=== PATIENT | female | born 2000 ===

== ENCOUNTER 2020-03-07 10:42 | Inpatient (IN) ==
[2020-03-07] MEDS ORDERED: NS 1,000 ML IV ONE (11:28)
[2020-03-07 12:28] LABS: BASO# 0.03 X1000 (0.0-0.2); BASO% 0.3 % (0.0-0.8); EOS# 0.01 X1000 (0.0-0.7); EOS% 0.1 % (0.0-10.0); HEMATOCRIT 14.5 % (37.0-47.0); HEMOGLOBIN 4.4 g/dL (12.0-16.0); LYMPH% 15.8 % (20.5-51.1); MCH 24.4 PG (27-31); MCHC 30.3 g/dL (33-37); MCV 80.6 FL (81-99); MONO% 6.5 % (1.7-9.3); MPV 11.6 FL (7.4-10.4); NEUT# 8.34 X1000 (1.4-6.5); NEUT% 77.3 % (42.2-75.2); PLT 302 X1000 (130-400); RDW 17.5 % (11.5-14.5); WBC 10.78 X1000 (4.8-10.8)
[2020-03-07 12:44] LABS: URINE SOURCE CLEAN CATCH
[2020-03-07 12:47] LABS: BILIRUBIN URINE NEGATIVE (NEGATIVE); BLOOD URINE MODERATE (NEGATIVE); COLOR YELLOW; GLUCOSE URINE NEGATIVE (NEGATIVE); KETONE URINE NEGATIVE (NEGATIVE); LEUKOCYTES URINE LARGE (NEGATIVE); NITRITE URINE NEGATIVE (NEGATIVE); PROTEIN URINE TRACE mg/dL (NEGATIVE); SP GRAVITY URINE 1.006; TURBIDITY URINE HAZY (CLEAR); UROBILINOGEN URINE NORMAL (NORMAL)
[2020-03-07 12:49] LABS: UR EPITHELIAL CELLS <10 /HPF (<10); URINE BACTERIA 1+ /HPF; URINE WBC TNTC /HPF (<10)
--- NOTE | 2020-03-07 12:57 | PROVIDER DOCUMENTATION ---
This chart was entered by Shazia Hess Scribe, acting as scribe for Nia Burton PA. HPI-Female /OB/Breast - General Source: reports: patient - History of Present Illness-Female /OB Does patient report she is ?: No (patient reports she is not on control) Location of complaint: reports: vaginal (patient states she has been on her menstrual cycle since 02/25 and has blood clots) Radiation: reports: back (lumbar pain) Quality of Pain: reports: cramping Severity in ED: reports: mild Onset/Duration: reports: gradual Timing: reports: still present Context/Activities at Onset: reports: light activity Vaginal Symptoms: reports: abnormal bleeding, passing clots/tissue Vaginal Bleeding Amount: Large/Heavy Urinary Symptoms: reports: no symptoms Contraception: reports: none Modifying Factors: improves with: nothing Associated Symptoms: reports: back/neck pain (lumbar), nausea, vomiting Similar Symptoms Previously?: Yes (patient sts she had similar sx in January but did not see physician) Recently seen or treated by another doctor?: No - LMP/ History LMP: 02/26/20 <Nia Burton - Last Filed: 03/07/20 12:56> <William Hernandez - Last Filed: 03/07/20 12:59> - General Chief Complaint: Female Stated Complaint: FEMALE Time Seen by Provider: 03/07/20 11:21 Allergies/Adverse Reactions: Patient Allergies Allergy/AdvReac Type Severity Reaction Status Date / Time No Known Allergies Allergy Verified 03/07/20 11:16 Home Medications: Home Medication List Medication Instructions Recorded Confirmed Last Taken Type NK [No Home Medications] 03/07/20 03/07/20 Unknown History - History of Present Illness-Female /OB Nature of Presenting Problem: 19yof presents to ED with c/o being on her menstrual cycle since 02/25 with heavy bleeding and clots. She also has weakness, lumbar pain, nausea, and vomited once this morning. She sts that she had similar sx in January but did not see a physician. She is not on any form of control. (Nia Burton) Review of Systems - Adult - REVIEW OF SYSTEMS - ADULT Constitutional: reports: see HPI. denies: chills, fever Eyes: reports: no symptoms reported Ears, Nose, Mouth & Throat: reports: no symptoms reported Cardiovascular: reports: see HPI. denies: chest pain, palpitations Respiratory: reports: see HPI. denies: cough, shortness of breath Gastrointestinal: reports: see HPI, nausea, vomiting. denies: abdominal pain, diarrhea Genitourinary: reports: no symptoms reported Musculoskeletal: reports: see HPI, back pain (lumbar). denies: neck pain Integumentary: reports: no symptoms reported Neurological: reports: no symptoms reported Psychiatric: reports: no symptoms reported Endocrine: reports: no symptoms reported Hematologic/Lymphatic: reports: no symptoms reported Allergic/Immunologic: reports: no symptoms reported All Other Systems: Reviewed and Negative <Nia Burton - Last Filed: 03/07/20 12:56> Past History - Adult - PAST MEDICAL HISTORY-ADULT Review of Records: reports: Nursing Assessment Review, Medications Reviewed, Social history reviewed & non-contributory. Major Childhood Illnesses: reports: denies history Cardiovascular: reports: denies history Respiratory: reports: denies history Gastrointestinal: reports: denies history Obstetrical/Gynecological: reports: denies history Genitourinary: reports: denies history Musculoskeletal: reports: denies history Neurological: reports: denies history Endocrine/Immune: reports: denies history Other Conditions: reports: denies history - SOCIAL HISTORY Smoking: denies Substance Use: denies <Nia Burton - Last Filed: 03/07/20 12:56> Physical Exam-General - PHYSICAL EXAM-ADULT Initial Vital Signs Reviewed: Yes - CONSTITUTIONAL General Appearance: appears well, alert, no apparent distress - EYES Eyes: PERRL/EOMI, pink conjunctivae - HEAD, EARS, NOSE, MOUTH & THROAT HENMT: normocephalic/atraumatic, moist mucous membranes - NECK Neck: non-tender, full range of motion, supple. negative: lymphadenopathy - RESPIRATORY Respiratory: chest non-tender, lungs clear, normal breath sounds. negative: crackles, rales, rhonchi, stridor, wheezing - CARDIOVASCULAR Cardiovascular: regular rate, rhythm, no edema - GASTROINTESTINAL (ABDOMEN) Abdominal Exam: normal bowel sounds, non tender, soft. negative: distended, guarding, rigid, rebound, tenderness, hernia, mass - MUSCULOSKELETAL Back Exam: normal inspection, no vertebral tenderness, CVA tenderness Extremity: normal gait, normal inspection - SKIN Integumentary: normal color, normal turgor, warm/dry - NEUROLOGIC Neurologic: grossly normal, no motor/sensory deficits - PSYCHIATRIC Psych/Mental Status: normal thought content, normal thought process <Nia BurtonHue - Last Filed: 03/07/20 12:56> Progress - PLAN OF CARE/RESULTS Result Diagrams: 03/07/20 11:45 - CONSULTS/PCP/HOSPITALIST Notification #1 *Consult/PCP/Hospitalist*: Dr. 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 Braden Consult Disposition: Will see in ED, Admit <William Hernandez - Last Filed: 03/07/20 12:59> - PLAN OF CARE/RESULTS Progress/Plan/Lab Results: Vital Signs - 8 hr 03/07/20 11:06 03/07/20 11:33 Temperature 99.3 F Pulse Rate 103 H Pulse Rate [Sitting] 112 H Pulse Rate [Standing] 118 H Pulse Rate [Supine] 100 H Respiratory Rate 18 Blood Pressure 117/55 Blood Pressure [Sitting] 116/62 Blood Pressure [Standing] 136/86 Blood Pressure [Supine] 120/62 O2 Sat by Pulse Oximetry 100 Bedside Urine ED: Urine Bedside Start: 03/07/20 11:22 Freq: ORDERED Status: Active Protocol: Activity Type Activity Date Activity User E-Sign Co-Sign Detail Recorded Client Recorded Date Recorded By Document 03/07/20 12:39 [id number] 03/07/20 12:40 [id number] 03/07/20 12:39 Point of Care [Bedside Point of Care] -Lot # [id number] - Results Negative -Control Line Visible? Yes Laboratory Results - last 24 hr 03/07/20 03/07/20 03/07/20 11:45 11:45 12:35 WBC 10.78 RBC 1.80 L Hgb 4.4 L* Hct 14.5 L MCV 80.6 L MCH 24.4 L MCHC 30.3 L RDW Std Deviation 17.5 H Plt Count 302 MPV 11.6 H Neut % (Auto) 77.3 H Lymph % (Auto) 15.8 L [place] % (Auto) 6.5 Eos % (Auto) 0.1 Baso % (Auto) 0.3 Neut # (Auto) 8.34 H Lymph # (Auto) 1.70 [place] # (Auto) 0.70 H Eos # (Auto) 0.01 Baso # (Auto) 0.03 Urine Source CLEAN CATCH Urine Color YELLOW Urine Turbidity HAZY Urine pH 6.0 Ur Specific [place] 1.006 Urine Protein TRACE A Ur Glucose (Stick) NEGATIVE Ur Ketones (Stick) NEGATIVE Urine Blood MODERATE A Urine Nitrite NEGATIVE Urine Bilirubin NEGATIVE Urobilinogen Dipstick NORMAL Urine Leukocytes LARGE A Urine WBC (Auto) TNTC A Urine RBC (Auto) 10-20 A U Epithel Cells (Auto) <10 Urine Bacteria (Auto) 1+ Blood Type Confirm A POSITIVE Orders Category Date Time Status ED: Orthostatic Vital Signs (ER use this DIRECTED Care 03/07/20 11:28 A ctive Saline Loc NOW Care 03/07/20 11:28 Active Transfuse .Give-Transfuse Care 03/07/20 12:34 Active Urine Preg [ED: Urine Bedside] ORDERED Care 03/07/20 11:22 Active CBC WITH ELECTRONIC DIFF [HEME] Stat Lab 03/07/20 11:45 Results COMPREHENSIVE METABOLIC PANEL [CHEM] Stat Lab 03/07/20 11:45 Received TYPE & SCREEN [BBK] Stat Lab 03/07/20 12:08 Results URINALYSIS W/POSS RFLX CULT [URINALYSIS] Stat Lab 03/07/20 12:35 Completed 0.9% Sodium Chloride Inj [Ns] 1,000 ml Med 03/07/20 11:28 Discontinued IV 999 mls/hr Oxygen Device Stat Oth 03/07/20 12:37 Active Departure - Departure Date of Disposition Decision: 03/07/20 Time of Disposition Decision: 12:38 Certified Medical Emergency: Emergent - Critical Care Note This patient required my direct & personal management of CC.: No <Nia Burton - Last Filed: 03/07/20 12:56> - Departure Certified Medical Emergency: Emergent <William Hernandez - Last Filed: 03/07/20 12:59> - Departure DIAGNOSIS: Symptomatic anemia Menorrhagia Qualifiers: Menorrhagia type: with irregular cycle Qualified Code(s): N92.1 - Excessive and frequent menstruation with irregular cycle Disposition: ADMITTED INPATIENT 09 Condition: Stable Referrals and Follow-Ups: None,PCP [Primary Care Provider] - Attestation - Physician/ CORTNEY Attestation Patient care was provided by Advanced Practice Provider:: Yes Advanced Practice Provider:: Nia Burton Advanced Practice Provider documentation review:: The Mid-level provider documentation, treatment plan and medical decision making was reviewed by the physician who agrees with all treatment and medical decision making by the MLP. The physician spent face to face time with patient:: Yes (Dr. Hernandez at bedside to discuss admission and labs and need for transfusion to address severe anemia.) Advanced Practice Provider documentation review:: Supervising physician onsite and consulted in the evaluation and care of this patient. The physician did have a face to face encounter with the patient. <Nia Burton - Last Filed: 03/07/20 12:56> This chart was documented by the indicated scribe, (Shazia Hess Scribe) and accurately reflects the services I performed and decisions made by me, Nia Burton PA, as attested by the provider's signature.
[2020-03-07 13:13] LABS: ANISOCYTOSIS 1+; BANDS 4 % (0-1); HYPOCHROM 1+; LYMPHS 20 % (21-51); MONO 2 % (1-9); POIKILOCYTOSIS 1+; SEGS 74 % (42-75)
[2020-03-07 13:14] LABS: LARGE PLATELETS OCCASIONAL
[2020-03-07 13:54] LABS: AGAP 14; ALB/GLOB RATIO 1.4; ALBUMIN 4.2 g/dL (3.5-5.0); ALKALINE PHOSPHATASE 45 U/L (32-104); BUN 8 mg/dL (8-22); CHLORIDE 98 mmol/L (98-107); COSMO 268; CREATININE 0.7 mg/dL (0.5-0.9); GLUCOSE 162 mg/dL (70-104); GOT 19 U/L (10-30); GPT 18 U/L (10-36); POTASSIUM 3.7 mmol/L (3.5-5.1); SODIUM 133 mmol/L (136-145); TCO2 21 mmol/L (25-35); TOTAL BILIRUBIN 0.15 mg/dL (0.20-1.00); TOTAL PROTEIN 7.3 g/dL (6.3-8.3)
--- NOTE | 2020-03-07 15:47 | Diag Imaging Result Doc PS360 ---
EXAM: US PELVIC NON-OB COMPLETE - 03/07/2020 HISTORY: menorrhagia TECHNIQUE: Ultrasound pelvis. Exam performed using transabdominal probe. COMPARISON: None. FINDINGS: The uterus measures 8 x 5.9 x 4.5 cm in size. There is no visible intrauterine . The dual layer endometrial thickness measures 2 cm. There is no discrete uterine lesion identified. The right ovary measures 3.8 x 2.6 x 2.1 cm in size. The left ovary measures 3.4 x 2.7 x 1.5 cm in size. The bilateral ovaries demonstrate blood flow signal on Doppler images. There are subcentimeter follicular cysts in the bilateral ovaries. There is no adnexal mass identified. There is minimal free fluid in the cul-de-sac. IMPRESSION: Borderline thickened endometrium at 2 cm. Minimal free fluid. Electronically signed by Anthony Barrett 03/07/2020 3:44 PM
[2020-03-07] MEDS ORDERED: NS 500 ML IV ONE (16:00)
--- NOTE | 2020-03-08 00:29 | HISTORY AND PHYSICAL ---
DATE OF ADMISSION: 03/07/2020 HISTORY OF PRESENT ILLNESS: The patient is a 19-year-old, Irish-speaking female, 0, 1st day of last menstrual period 02/26/2020, who presents to the emergency room after presenting to a physician's office in the community who recommended her to go to the hospital. The patient states that on the day of her menstrual period (02/26/2020), she experienced heavy bleeding and passage of large blood clots for 2 days. On day 3 of her menses, the bleeding grew emergency dispatcher and her menstrual period eventually resolved. She states that on February 28, she experienced nausea, which was a unique symptom and she experienced a recurrence of vaginal bleeding on March 06 that lasted for 1 day and specifically 3 hours. She presented to the ER at [facility] secondary to the onset of lightheadedness, of which she had never experienced before. GYNECOLOGY HISTORY: Significant for dysmenorrhea, the patient states that she is a virgin. PAST MEDICAL HISTORY: Significant for irregular heavy menstrual periods. She states that she does not have a menses every month, that she experiences a menstrual period every 1 to 2 months. PAST SURGICAL HISTORY: Denies. SOCIAL HISTORY: She admits to drinking alcohol socially once in her lifetime. She denies tobacco and illicit drug use. ALLERGIES: NKDA. MEDICATION: Aleve and Pamprin as needed during her menstrual period. FAMILY HISTORY: Significant for father age 52 who has noninsulin-dependent diabetes mellitus. PHYSICAL EXAMINATION: Vital Signs: Temperature 99.5 degrees, pulse rate 115, respiratory rate 18, blood pressure 129/68. Heart: Tachycardic at 101 beats per minute. Lungs: Clear to auscultation bilaterally. Abdomen: Soft, nontender. No palpable organomegaly. Pelvic: Deferred as the patient is less than 21 years of age and is a virgin. She states that she has not had any vaginal bleeding today. LABORATORY RESULTS: WBC 10.8, hemoglobin 4.4, hematocrit 14.0, platelet count 302,000. Sodium 133, chloride 98, potassium 3.7, CO2 is 21, BUN 8, creatinine 0.7. Glucose 162, AST 19, ALT 18. Urinalysis significant for moderate blood, trace protein, large leukocytes. ASSESSMENT: 1. Menometrorrhagia. 2. Severe anemia. 3. Hyperglycemia. PLAN: 1. Type and screen. 2. Blood transfusion. 3. Pelvic ultrasound to rule out the etiology of abnormal bleeding, i.e., thickened endometrium, uterine fibroids, ovarian cyst, etc. 4. Labs, PT, PTT, TSH, PRL, hemoglobin A1c, von Willebrand's; UCG (negative). The patient was informed of her diagnosis and the management plan. Will be informed of her ultrasounds results. She is aware that she is in need of a blood transfusion due to her severe anemic status. Thank you for consulting me and the [facility]IST team will continue to follow Benita.
[2020-03-08 00:32] LABS: HEMOGLOBIN A1C 5.4 % (4.8-6.0)
[2020-03-08 00:42] LABS: INR 1.06; PROTIME 13.9 Seconds (11.0-16.0); PTT 29.1 Seconds (22.3-41.8)
[2020-03-08 06:46] LABS: BASO# 0.03 X1000 (0.0-0.2); BASO% 0.4 % (0.0-0.8); EOS# 0.03 X1000 (0.0-0.7); EOS% 0.4 % (0.0-10.0); HEMATOCRIT 27.3 % (37.0-47.0); IMM GRAN# 0.05 X1000 (0.0-0.04); IMM GRAN% 0.6 % (0.0-0.5); LYMPH# 2.66 X1000 (1.2-3.4); LYMPH% 31.7 % (20.5-51.1); MCH 27.8 PG (27-31); MCV 84.3 FL (81-99); MONO# 0.73 X1000 (0.11-0.59); MONO% 8.7 % (1.7-9.3); MPV 11.8 FL (7.4-10.4); NEUT# 4.88 X1000 (1.4-6.5); NEUT% 58.2 % (42.2-75.2); PLT 267 X1000 (130-400); RBC 3.24 XMIL (4.2-5.4); RDW 15.8 % (11.5-14.5); WBC 8.38 X1000 (4.8-10.8)
--- NOTE | 2020-03-08 07:55 | OB/GYN PROGRESS NOTE ---
- Subjective 19 yo G0 with heavy, irregular menses to anemia Patient seen and examined. She denies any heavy bleeding, but did have some light bleeding overnight. Her period was very heavy with passage of clots on 02/25. She is currently receiving # 4 of 5 units of PRBCs. She is feeling better after receiving the blood. She denies dizziness, lightheadedness, nausea, vomiting. She is tolerating a regular diet. Discussed starting OCPs for heavy menses and she is amenable. She denies any personal or family history of clotting disorders. OB Physical Exam Vital Signs - 8 hr 03/08/20 00:49 03/08/20 01:23 03/08/20 04:00 Temperature 98.4 F 98.5 F 98.3 F Pulse Rate 86 79 74 Respiratory Rate 14 14 18 Blood Pressure 125/64 122/61 108/56 O2 Sat by Pulse Oximetry 100 100 100 03/08/20 06:39 03/08/20 07:18 Temperature 98.4 F 98.7 F Pulse Rate 73 70 Respiratory Rate 14 14 Blood Pressure 108/61 126/78 O2 Sat by Pulse Oximetry 100 100 - CONSTITUTIONAL General Appearance: appears well, alert, no apparent distress - HEAD, EARS, NOSE, MOUTH & THROAT HENMT: normocephalic/atraumatic - RESPIRATORY Respiratory: lungs clear, normal breath sounds, no respiratory distress - CARDIOVASCULAR Cardiovascular: regular rate, rhythm - GASTROINTESTINAL (ABDOMEN) Abdominal Exam: normal bowel sounds, non tender, soft - MUSCULOSKELETAL Extremity: normal range of motion, non-tender, normal inspection, no pedal edema - NEUROLOGIC Neurologic: grossly normal - PSYCHIATRIC Psych/Mental Status: normal mood/affect Active Medications Generic Name Dose Route Start Last Admin Trade Name Freq PRN Reason Stop Dose Admin Furosemide 20 mg 03/08/20 15:00 Lasix IV 03/08/20 15:01 NOW ONE Sodium Chloride 500 mls @ 30 mls/hr 03/07/20 16:00 Ns IV 03/08/20 08:39 ONCE ONE Bedside Urine ED: Urine Bedside Start: 03/07/20 11:22 Freq: ORDERED Status: Complete Protocol: Activity Type Activity Date Activity User E-Sign Co-Sign Detail Recorded Client Recorded Date Recorded By Document 03/07/20 12:39 [id number] 03/07/20 12:40 [id number] Edit Status 03/07/20 20:43 [id number] Active=>Complete [id number] 03/07/20 20:43 [id number] 03/07/20 12:39 Point of Care [Bedside Point of Care] -Lot # [id number] - Results Negative -Control Line Visible? Yes Laboratory Results - last 24 hr 03/07/20 03/07/20 03/07/20 00:12 00:12 00:12 WBC RBC Hgb Hct MCV MCH MCHC RDW Std Deviation Plt Count MPV Immature Gran % (Auto) Neut % (Auto) Lymph % (Auto) [place] % (Auto) Eos % (Auto) Baso % (Auto) Immature Gran # (Auto) Neut # (Auto) Lymph # (Auto) [place] # (Auto) Eos # (Auto) Baso # (Auto) Segmented Neutrophils Band Neutrophils Lymphocytes Monocytes Hypochromia Large Platelets Poikilocytosis Anisocytosis PT 13.9 INR 1.06 PTT (Actin FS) 29.1 Fibrinogen 310.0 Sodium Potassium Chloride Carbon Dioxide Anion Gap BUN Creatinine BUN/Creatinine Ratio Glucose Estimat Average Glucose Hemoglobin A1c Calculated Osmolality Calcium Total Bilirubin AST ALT Alkaline Phosphatase Total Protein Albumin Globulin Albumin/Globulin Ratio TSH 4.96 H Urine Source Urine Color Urine Turbidity Urine pH Ur Specific [place] Urine Protein Ur Glucose (Stick) Ur Ketones (Stick) Urine Blood Urine Nitrite Urine Bilirubin Urobilinogen Dipstick Urine Leukocytes Urine WBC (Auto) Urine RBC (Auto) U Epithel Cells (Auto) Urine Bacteria (Auto) Blood Type Blood Type Confirm Antibody Screen Crossmatch 03/07/20 03/07/20 03/07/20 00:12 11:45 11:45 WBC 10.78 RBC 1.80 L Hgb 4.4 L* Hct 14.5 L MCV 80.6 L MCH 24.4 L MCHC 30.3 L RDW Std Deviation 17.5 H Plt Count 302 MPV 11.6 H Immature Gran % (Auto) Neut % (Auto) 77.3 H Lymph % (Auto) 15.8 L [place] % (Auto) 6.5 Eos % (Auto) 0.1 Baso % (Auto) 0.3 Immature Gran # (Auto) Neut # (Auto) 8.34 H Lymph # (Auto) 1.70 [place] # (Auto) 0.70 H Eos # (Auto) 0.01 Baso # (Auto) 0.03 Segmented Neutrophils 74 Band Neutrophils 4 H Lymphocytes 20 L Monocytes 2 Hypochromia 1+ Large Platelets OCCASIONAL Poikilocytosis 1+ Anisocytosis 1+ PT INR PTT (Actin FS) Fibrinogen Sodium 133 L Potassium 3.7 Chloride 98 Carbon Dioxide 21 L Anion Gap 14 BUN 8 Creatinine 0.7 BUN/Creatinine Ratio 11 Glucose 162 H Estimat Average Glucose 108 Hemoglobin A1c 5.4 Calculated Osmolality 268 Calcium 9.0 Total Bilirubin 0.15 L AST 19 ALT 18 Alkaline Phosphatase 45 Total Protein 7.3 Albumin 4.2 Globulin 3.1 Albumin/Globulin Ratio 1.4 TSH Urine Source Urine Color Urine Turbidity Urine pH Ur Specific [place] Urine Protein Ur Glucose (Stick) Ur Ketones (Stick) Urine Blood Urine Nitrite Urine Bilirubin Urobilinogen Dipstick Urine Leukocytes Urine WBC (Auto) Urine RBC (Auto) U Epithel Cells (Auto) Urine Bacteria (Auto) Blood Type Blood Type Confirm Antibody Screen Crossmatch 03/07/20 03/07/20 03/07/20 11:45 12:08 12:35 WBC RBC Hgb Hct MCV MCH MCHC RDW Std Deviation Plt Count MPV Immature Gran % (Auto) Neut % (Auto) Lymph % (Auto) [place] % (Auto) Eos % (Auto) Baso % (Auto) Immature Gran # (Auto) Neut # (Auto) Lymph # (Auto) [place] # (Auto) Eos # (Auto) Baso # (Auto) Segmented Neutrophils Band Neutrophils Lymphocytes Monocytes Hypochromia Large Platelets Poikilocytosis Anisocytosis PT INR PTT (Actin FS) Fibrinogen Sodium Potassium Chloride Carbon Dioxide Anion Gap BUN Creatinine BUN/Creatinine Ratio Glucose Estimat Average Glucose Hemoglobin A1c Calculated Osmolality Calcium Total Bilirubin AST ALT Alkaline Phosphatase Total Protein Albumin Globulin Albumin/Globulin Ratio TSH Urine Source CLEAN CATCH Urine Color YELLOW Urine Turbidity HAZY Urine pH 6.0 Ur Specific [place] 1.006 Urine Protein TRACE A Ur Glucose (Stick) NEGATIVE Ur Ketones (Stick) NEGATIVE Urine Blood MODERATE A Urine Nitrite NEGATIVE Urine Bilirubin NEGATIVE Urobilinogen Dipstick NORMAL Urine Leukocytes LARGE A Urine WBC (Auto) TNTC A Urine RBC (Auto) 10-20 A U Epithel Cells (Auto) <10 Urine Bacteria (Auto) 1+ Blood Type A POSITIVE Blood Type Confirm A POSITIVE Antibody Screen NEGATIVE Crossmatch See Detail 03/08/20 06:23 WBC 8.38 RBC 3.24 L Hgb 9.0 L D Hct 27.3 L D MCV 84.3 MCH 27.8 MCHC 33.0 RDW Std Deviation 15.8 H Plt Count 267 MPV 11.8 H Immature Gran % (Auto) 0.6 H Neut % (Auto) 58.2 Lymph % (Auto) 31.7 [place] % (Auto) 8.7 Eos % (Auto) 0.4 Baso % (Auto) 0.4 Immature Gran # (Auto) 0.05 H Neut # (Auto) 4.88 Lymph # (Auto) 2.66 [place] # (Auto) 0.73 H Eos # (Auto) 0.03 Baso # (Auto) 0.03 Segmented Neutrophils Band Neutrophils Lymphocytes Monocytes Hypochromia Large Platelets Poikilocytosis Anisocytosis PT INR PTT (Actin FS) Fibrinogen Sodium Potassium Chloride Carbon Dioxide Anion Gap BUN Creatinine BUN/Creatinine Ratio Glucose Estimat Average Glucose Hemoglobin A1c Calculated Osmolality Calcium Total Bilirubin AST ALT Alkaline Phosphatase Total Protein Albumin Globulin Albumin/Globulin Ratio TSH Urine Source Urine Color Urine Turbidity Urine pH Ur Specific [place] Urine Protein Ur Glucose (Stick) Ur Ketones (Stick) Urine Blood Urine Nitrite Urine Bilirubin Urobilinogen Dipstick Urine Leukocytes Urine WBC (Auto) Urine RBC (Auto) U Epithel Cells (Auto) Urine Bacteria (Auto) Blood Type Blood Type Confirm Antibody Screen Crossmatch OB Assessment & Plan (1) Menorrhagia Status: Acute Plan: 19 yo G0 with heavy, irregular menses to anemia, elevated TSH 1. HD stable Hgb 4.4>9 after 3 units. Currently receiving unit #4 of 5. Vaginal bleeding currently light. 2. Will plan to start OCPs for heavy menses 3. elevated TSH> will check FT4 this AM 4. Von-Willebrand studies pending 5. Plan for patient to follow-up outpatient
[2020-03-08] MEDS: SPRINTEC PO SCH (08:43)
[2020-03-08] MEDS ORDERED: PATIENT'S OWN MED PO SCH (09:00)
--- NOTE | 2020-03-08 10:54 | PROGRESS NOTE ---
DATE: 03/08/2020 TIME SEEN: The patient was seen at 7:45 a.m. SUBJECTIVE: Benita is a 19-year-old, [place]uneian-speaking female, 1, who was admitted to [facility] on yesterday secondary to severe anemia caused by menometrorrhagia. The patient was started on a blood transfusion and is currently between her 2nd and 3rd units. The patient has had a CBC and her hemoglobin levels are 9.0 and hematocrit level 27.3. Her platelet level is 267,000 and WBC 8.4. Benita looks better in appearance and states that she feels better. However, her blood transfusion will continue to bring her hemoglobin to at least in the 10 range or higher. She states that she had an episode of vaginal spotting earlier this morning, but it has resolved. She is currently not experiencing any vaginal bleeding. The plan will be to begin her on a contraceptive in order to regulate her menstrual periods. Her diet was changed to a light diet and she tolerated it. She can begin to eat a regular diet if tolerated and if she does not have any additional episodes of heavy vaginal bleeding. However, I will let the next person managing her condition to make that decision today. PHYSICAL EXAMINATION: Vital Signs: Temperature 98.7 degrees, pulse 70, respiratory rate 14, blood pressure 126/78. Abdomen: Nontender to palpation. Neurologic: She is appropriately responsive and alert and oriented x3. ASSESSMENT: 1. Menometrorrhagia. 2. Severe anemia, improving. 3. Hyperglycemia. Her hemoglobin A1c was normal at 5.4. Her TSH was elevated at 4.96; however, her free T4 is normal at 1.23 (her TSH and free T4 levels will continue to be followed). PLAN: 1. Continue blood transfusion. Pelvic ultrasound result was obtained and did not identify any significant abnormalities. 2. Awaiting some test results to be reported. 3. The patient will receive Lasix 20 mg IV push after the completion of her transfusion.
[2020-03-08] MEDS: LASIX IV ONE ×2 (13:10→15:30)
[2020-03-08 16:18] LABS: HEMATOCRIT 36.4 % (37.0-47.0); HEMOGLOBIN 12.4 g/dL (12.0-16.0)
[2020-03-09 06:42] LABS: BASO# 0.03 X1000 (0.0-0.2); BASO% 0.3 % (0.0-0.8); EOS# 0.07 X1000 (0.0-0.7); EOS% 0.7 % (0.0-10.0); HEMATOCRIT 36.4 % (37.0-47.0); HEMOGLOBIN 12.1 g/dL (12.0-16.0); IMM GRAN# 0.06 X1000 (0.0-0.04); IMM GRAN% 0.6 % (0.0-0.5); LYMPH# 3.12 X1000 (1.2-3.4); LYMPH% 30.4 % (20.5-51.1); MCH 27.8 PG (27-31); MCHC 33.2 g/dL (33-37); MCV 83.7 FL (81-99); MONO# 0.94 X1000 (0.11-0.59); MONO% 9.2 % (1.7-9.3); MPV 11.9 FL (7.4-10.4); NEUT# 6.04 X1000 (1.4-6.5); NEUT% 58.8 % (42.2-75.2); PLT 260 X1000 (130-400); RBC 4.35 XMIL (4.2-5.4); RDW 15.6 % (11.5-14.5); WBC 10.26 X1000 (4.8-10.8)
[2020-03-09] MEDS: SPRINTEC PO SCH (08:52)
[2020-03-09 11:40] VITALS: BP 147/76
--- NOTE | 2020-03-09 18:48 | DISCHARGE SUMMARY ---
ADMISSION DATE: 03/07/2020 DISCHARGE DATE: 03/09/2020 ADMISSION DIAGNOSIS: A 19-year-old female with menorrhagia and severe anemia. FINAL DIAGNOSIS: Same as above. PROCEDURES: Transfusion of packed red blood cells. BRIEF HISTORY: Patient is a 19-year-old, female, G0 ,who presents with passing heavy clots for the past several days, was seen in a Community physician's office and was advised to go to the emergency room due to lightheadedness and the patient over the past 8 to 9 days had been experiencing heavy blood loss. She is presently not on anything for control and denies any sexual activity. REGISTERED OCCUPATIONAL THERAPIST HISTORY: Dysmenorrhea, irregular and heavy menstrual cycles. PAST MEDICAL HISTORY: Irregular and heavy cycles. She reports that she does not have a menses every month. PAST SURGICAL HISTORY: None in the past. SOCIAL HISTORY: Social alcohol. Denies tobacco or drug use. ALLERGIES: No known drug allergies. MEDICATIONS: Aleve and Pamprin for her menstrual period. FAMILY HISTORY: Father has non-insulin diabetes mellitus. PHYSICAL EXAMINATION: Vital Signs: Temperature 99.5 degrees, pulse 115, respirations 18, blood pressure 129/68. Heart: Regular rate and rhythm. Lungs: Clear to auscultation. Abdomen: Soft. Bowel sounds positive. Pelvic was deferred and at that time patient has not had any bleeding. LABORATORY STUDIES: White count was 10.8, hemoglobin 4.4, hematocrit 14.0, platelet count 302,000. UCG was negative. ASSESSMENT: Menometrorrhagia, severe anemia and hyperglycemia. PLAN: Type and crossmatch blood transfusion, pelvic ultrasound and lab studies for coagulation studies. HOSPITAL COURSE: Patient was transfused 5 units of packed red blood cells, and after her transfusion her hemoglobin was 12.1, hematocrit 36.4. The patient was doing well and tolerating liquids and then advanced to a regular diet. On her laboratory study, it was noted that her TSH was elevated but free T4 was within normal limits. On hospital day 2-11/17 it was felt the patient could be discharged home. She was started on Sprintec on hospital day #2 and we will continue this. DISCHARGE INSTRUCTIONS: The patient is instructed on pelvic rest and to call for heavy vaginal bleeding. Patient given prescriptions for Sprintec and for iron. Patient also is to follow up with Dr. Doran in 1 month. cc: Mahesh Padilla III, MD
== END 2020-03-09 14:11 | disposition home or self-care (01) | DRG 812 ==
LOC: ED 10:42 → 4N 13:39
PROVIDERS: ADMIT Obstetrics & Gynecology; ATTEND Obstetrics & Gynecology